=== PATIENT | female | born 1950 | race Caucasian/White ===

== ENCOUNTER → 2020-10-11 16:06 | Outpatient (CLI) | payer MEDICARE, SELFPAY ==
--- NOTE | ~2020-10-11 | XR_ITS ---
EXAMINATION: XR cervical spine 4-5V DATE: 10/11/2020 16:50 INDICATION: Right arm pain. TECHNIQUE: 4 views of cervical spine were obtained. COMPARISON: None. FINDINGS: There is 11 degrees levoscoliosis of cervical spine. There is 2 mm anterolisthesis of C7 on T1. Vertebral body heights are normal. There is mildly decreased disc height at C4-C5, moderately de creased disc height at C5-C6, and mildly decreased disc height at C6-C7. There is multilevel facet shruti int osteoarthritis, moderate on the right at C3-C4 and C4-C5. 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 There is mild central canal stenosis at C3-C4, C4-C5, and C5-C6. No prevertebral soft tissue swelling. IMPRESSION: 1. Moderate cervical spondylosis. 2. Cervical levoscoliosis. Reviewed, dictated and finalized at location A.
== END ==
DX: M79.601 Pain in right arm (principal); M47.812 Spondylosis without myelopathy or radiculopathy, cervical region; M41.82 Other forms of scoliosis, cervical region
CPT/HCPCS: 72050